=== PATIENT | female | born 2000 | race Caucasian/White ===

== ENCOUNTER 2022-09-07 01:24 | Emergency (ER) | payer BC ==
[~2022-09-07] VITALS: Ht 167.6 cm; Wt 63.6 kg
[2022-09-07 01:26] VITALS: BP 140/91
[2022-09-07] MEDS ORDERED: AMOXICILLIN 8751 TAB PO (04:43)
[2022-09-07 04:55] VITALS: PULSE 93
== END 2022-09-07 04:55 | disposition home or self-care (01) ==
LOC: COL.ER 01:24
DX: S01.511A Laceration without foreign body of lip, initial encounter (principal); W54.0XXA Bitten by dog, initial encounter